=== PATIENT | female | born 1965 | race Caucasian/White ===

== ENCOUNTER 2018-04-14 19:12 | Emergency (ER) | payer OTHER ==
[2018-04-14] MEDS: KETOROLAC 15 MG INJ IV (19:50)
[2018-04-14] MEDS: SOD CHLORIDE 0.9% 1,000 ML IV (19:50)
[2018-04-14 19:52] LABS: ADD MAN DIFF? NO
[2018-04-14 19:54] LABS: WHITE BLOOD COUNT 11.2 10^3/ul (4.8-10.8)
[2018-04-14 19:54] LABS: BASOPHIL # 0.1 10^3/ul (0.0-0.1); BASOPHILS % 0.5 % (0.0-2.0); EOSINOPHILS # 0.2 10^3/ul (0.0-0.5); EOSINOPHILS % 1.3 % (0.0-7.0); HEMATOCRIT 39.2 % (37.0-47.0); HEMOGLOBIN 12.4 g/dl (12.0-16.0); LYMPHOCYTES # 3.9 10^3/ul (0.8-2.9); LYMPHOCYTES % 34.9 % (15.0-51.0); MEAN CORPUSCULAR HGB CONC 31.6 g/dl (32.0-37.0); MEAN PLATELET VOLUME 9.7 fl (7.4-10.4); MONOCYTE # 0.5 10^3/ul (0.3-0.9); MONOCYTES % 4.8 % (0.0-11.0); NEUTROPHIL # 6.5 10^3/ul (1.6-7.5); NEUTROPHILS % 58.1 % (39.0-77.0); PLATELET COUNT 397 10^3/UL (140-415); RED BLOOD COUNT 5.16 10^6/ul (4.20-5.40)
[2018-04-14 20:07] LABS: ANION GAP 14 (8-16); BLOOD UREA NITROGEN 13 mg/dl (7-20); CALCIUM 9.2 mg/dl (8.4-10.2); CARBON DIOXIDE 26 mmol/L (21-31); CHLORIDE 103 mmol/L (97-110); CREATININE 0.58 mg/dl (0.44-1.00); GLUCOSE 233 mg/dl (70-220); INR 0.91; PARTIAL THROMBOPLASTIN TIME 30.7 Sec (25.0-35.0); POTASSIUM 3.6 mmol/L (3.5-5.1); PROTIME 12.3 Sec (11.9-14.9); SODIUM 139 mmol/L (135-144)
[2018-04-14 20:28] LABS: TROPONIN-I < 0.012 ng/ml (0.000-0.120)
[2018-04-14] MEDS: DIPHTH/TET/ACEL PERTUSS (ADULT) 0.5 ML VIAL IM* (20:37)
== END 2018-04-14 21:31 | disposition home or self-care (01) ==
LOC: E/R 21:31
DX: S00.81XA Abrasion of other part of head, initial encounter (principal); R04.0 Epistaxis; I10 Essential (primary) hypertension; E11.9 Type 2 diabetes mellitus without complications; W22.8XXA Striking against or struck by other objects, initial encounter; Y92.9 Unspecified place or not applicable; Z23 Encounter for immunization; Z79.4 Long term (current) use of insulin; Z79.82 Long term (current) use of aspirin
CPT/HCPCS: 36415; 70486; 80048; 84484; 85025; 85610; 85730; 90471; 90715; 93005; 96374; 99285-25

== ENCOUNTER 2018-11-05 17:44 | Emergency (ER) | payer SELFPAY, OTHER | END 2018-11-06 00:05 | disposition left against medical advice (07) | LOC: FTE 11-06 00:05 | DX: Z53.21 Procedure and treatment not carried out due to patient leaving prior to being seen by health care provider (principal) ==

== ENCOUNTER 2019-05-05 23:33 | Emergency (ER) | payer SELFPAY | END 2019-05-06 00:53 | disposition left against medical advice (07) | LOC: E/R 23:33 | DX: Z53.21 Procedure and treatment not carried out due to patient leaving prior to being seen by health care provider (principal) | CPT/HCPCS: 93005 ==